=== PATIENT | male | born 1975 | race Caucasian/White ===

== ENCOUNTER 2017-04-19 14:36 | Emergency (ER) | payer OTHER ==
[2017-04-19] MEDS ORDERED: Sodium Chloride 0.9% 10 ML Syringe FLUSH PRN (14:42)
[2017-04-19] MEDS ORDERED: HYDROmorphone 0.5 MG/0.5 ML SYRINGE IVPUSH ONE ×2 (14:45→17:43)
[2017-04-19] MEDS ORDERED: Iopamidol 612 MG/ML 100 ML Bottle IVPUSH ONE (15:33)
[2017-04-19] MEDS ORDERED: Sodium Chloride 0.9% 10 ML Syringe FLUSH ONE (15:33)
--- NOTE | 2017-04-19 16:39 | EDM.PDOC ---
ED HPI GENERAL MEDICAL PROBLEM - General Chief Complaint: Chest Pain Stated Complaint: [facility] Time Seen by Provider: 04/19/17 14:42 Source of Information: Reports: Patient, EMS History Limitations: Reports: No Limitations - History of Present Illness INITIAL COMMENTS - FREE TEXT/NARRATIVE: The patient fell going into his trailer last night and landed on a chair with his right chest. He did not hit his head and he has no neck pain. He had pain through the night but this morning it was much worse. He has pain in the right chest that radiates to the right shoulder. He has no headache, neck pain, abdominal pain, nausea or vomiting. He does smoke. Onset: Sudden Duration: Day(s): (Last night) Location: Reports: Chest Quality: Reports: Sharp Severity: Severe Improves with: Reports: Immobilization Worsens with: Reports: Movement Context: Reports: Trauma (He fell in his trailer last night) Associated Symptoms: Reports: Chest Pain, Shortness of Breath. 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) Right Chest Pain Score (Numeric/FACES): 8 - Related Data Allergies Allergy/AdvReac Type Severity Reaction Status Date / Time No Known Allergies Allergy Verified 04/19/17 14:45 Home Meds: Home Meds oxyCODONE HCl/Acetaminophen [Percocet 5-325 mg Tablet] 1 - 2 each PO Q6HR PRN # 20 tablet 04/19/17 [Rx] Social & Family History - Tobacco Use Smoking Status *Q: Current Every Day Smoker Years of Tobacco use: 25 Packs/Tins Daily: 1 Used Tobacco, but Quit: No - Caffeine Use Caffeine Use: Reports: None - Recreational Drug Use Recreational Drug Use: No ED ROS GENERAL - Review of Systems Review Of Systems: See Below Constitutional: Reports: No Symptoms HEENT: Reports: No Symptoms Respiratory: Reports: Shortness of Breath Cardiovascular: Reports: Chest Pain Endocrine: Reports: No Symptoms GI/Abdominal: Reports: No Symptoms : Reports: No Symptoms Musculoskeletal: Reports: No Symptoms ED EXAM, GENERAL - Physical Exam Exam: See Below Exam Limited By: No Limitations General Appearance: Alert, Mild Distress Ears: Normal External Exam Nose: Normal Inspection Head: Atraumatic, Normocephalic Neck: Normal Inspection, Supple, Non-Tender Respiratory/Chest: No Respiratory Distress, Lungs Clear, Normal Breath Sounds Cardiovascular: Regular Rate, Rhythm, No Edema, No Murmur, Other (Pain upon palpation to the right ribs) GI/Abdominal: Soft, Non-Tender, No Organomegaly, No Mass Back Exam: Normal Inspection Extremities: Normal Inspection EKG INTERPRETATION EKG Date: 04/19/17 Time: 15:05 Rhythm: Other (sinus tachycardia) Rate (Beats/Min): [address] [place]: Normal P-Wave: Present QRS: Normal ST-T: Normal QT: Normal Course - Vital Signs Last Recorded V/S: Last Vital Signs Temp 98.3 F 04/19/17 14:41 Pulse 104 H 04/19/17 14:41 Resp 24 H 04/19/17 14:41 BP 168/101 H 04/19/17 14:41 Pulse Ox 93 L 04/19/17 14:41 - Orders/Labs/Meds Orders: Active Orders 24 hr Category Date Time Status Cardiac Monitoring [RC] . DIRECTED Care 04/19/17 14:43 Active EKG Documentation Completion [RC] STAT Care 04/19/17 14:44 Active Oxygen Therapy [RC] PRN Care 04/19/17 14:43 Active Peripheral IV Care [RC] . DIRECTED Care 04/19/17 14:44 Active Chest w Cont [CT] Stat Exams 04/19/17 14:45 Taken Sodium Chloride 0.9% [Saline Flush] Med 04/19/17 14:42 Active 10 ml FLUSH ASDIRECTED PRN Peripheral IV Insertion Adult [OM.PC] Stat Oth 04/19/17 14:42 Ordered Medication Orders Sodium Chloride (Saline Flush) 10 ml FLUSH ASDIRECTED PRN PRN Reason: Keep Vein Open Last Admin: 04/19/17 14:54 Dose: 10 ml Labs: Laboratory Tests 04/19/17 04/19/17 Range/Units 14:55 14:55 WBC 14.60 H (4.23-9.07) K/mm3 RBC 5.15 (4.63-6.08) M/mm3 Hgb 16.3 (13.7-17.5) gm/L Hct 47.5 (40.1-51.0) % MCV 92.2 (79.0-92.2) fl MCH 31.7 (25.7-32.2) pg MCHC 34.3 (32.2-35.5) g/dl RDW Std Deviation 45.8 H (35.1-43.9) fL Plt Count 261 (163-337) K/mm3 MPV 9.8 (9.4-12.3) fl Neut % (Auto) 73.2 H (34.0-67.9) % Lymph % (Auto) 17.5 L (21.8-53.1) % [place] % (Auto) 7.5 (5.3-12.2) % Eos % (Auto) 1.5 (0.8-7.0) Baso % (Auto) 0.1 (0.1-1.2) % Neut # (Auto) 10.68 H (1.78-5.38) K/mm3 Lymph # (Auto) 2.56 (1.32-3.57) K/mm3 [place] # (Auto) 1.09 H (0.30-0.82) K/mm3 Eos # (Auto) 0.22 (0.04-0.54) K/mm3 Baso # (Auto) 0.02 (0.01-0.08) K/mm3 Sodium 141 (136-145) mEq/L Potassium 3.8 (3.5-5.1) mEq/L Chloride 103 (98-107) mEq/L Carbon Dioxide 24 (21-32) mEq/L Anion Gap 17.8 H (5-15) BUN 8 (7-18) mg/dL Creatinine 0.9 (0.7-1.3) mg/dL Est Cr Clr Drug Dosing 113.88 mL/min Estimated GFR (MDRD) > 60 (>60) mL/min BUN/Creatinine Ratio 8.9 L (14-18) Glucose 99 (74-106) mg/dL Calcium 8.9 (8.5-10.1) mg/dL Total Bilirubin 0.5 (0.2-1.0) mg/dL AST 39 H (15-37) U/L ALT 54 (16-63) U/L Alkaline Phosphatase 69 (46-116) U/L Troponin I < 0.017 (0.00-0.056) ng/mL Total Protein 8.0 (6.4-8.2) g/dl Albumin 4.4 (3.4-5.0) g/dl Globulin 3.6 gm/dL Albumin/Globulin Ratio 1.2 (1-2) Meds: Medications Generic Name Dose Route Start Last Admin Trade Name Freq PRN Reason Stop Dose Admin Sodium Chloride 10 ml 04/19/17 14:42 04/19/17 14:54 Saline Flush FLUSH 10 ml ASDIRECTED PRN Administration Keep Vein Open Discontinued Medications Generic Name Dose Route Start Last Admin Trade Name Freq PRN Reason Stop Dose Admin Hydromorphone HCl 0.5 mg 04/19/17 14:45 04/19/17 14:54 Dilaudid IVPUSH 04/19/17 14:46 0.5 mg ONETIME ONE Administration Iopamidol 100 ml 04/19/17 15:33 04/19/17 15:53 Isovue-300 (61%) IVPUSH 04/19/17 15:34 100 ml ONETIME ONE Administration Sodium Chloride 10 ml 04/19/17 15:33 04/19/17 15:53 Saline Flush FLUSH 04/19/17 15:34 10 ml ONETIME ONE Administration - Re-Assessments/Exams Free Text/Narrative Re-Assessment/Exam: 04/19/17 16:38 I ordered an IV, labs, a CT of his chest and dilaudid 0.5mg IV for pain. 04/19/17 17:43 His WBC was elevated at 14.6. His anion gap is elevated at 17.8. His AST is elevated at 34. His troponin is negative. The CT of his chest shows acute fracture of right 7th rib, small right sided pneumothorax estimated at less than 10% and Ghon complex RLL. Departure - Departure Time of Disposition: 17:45 Disposition: Home, Self-Care 01 Condition: Good Clinical Impression: Pneumothorax on right Fall Qualifiers: Encounter type: initial encounter Qualified Code(s): W19.XXXA - Unspecified fall, initial encounter Rib fracture Qualifiers: Encounter type: initial encounter Rib fracture type: single rib Fracture type: closed Laterality: right Qualified Code(s): S22.31XA - Fracture of one rib, right side, initial encounter for closed fracture Prescriptions: oxyCODONE HCl/Acetaminophen [Percocet 5-325 mg Tablet] 1 - 2 each PO Q6HR PRN # 20 tablet PRN Reason: Pain Referrals: PCP,Not In Area [Primary Care Provider] - Domo Diaz MD [Physician] - 1 Week Forms: ED Department Discharge Additional Instructions: Take percocet as needed for pain. Try to take some deep breaths. Please return if you are more short of breath or have more pain. Try to stop smoking. Follow up with Dr Diaz in 1 week. - My Orders Last 24 Hours: My Active Orders 04/19/17 14:42 Sodium Chloride 0.9% [Saline Flush] 10 ml FLUSH ASDIRECTED PRN Peripheral IV Insertion Adult [OM.PC] Stat 04/19/17 14:43 Cardiac Monitoring [RC] . DIRECTED Oxygen Therapy [RC] PRN 04/19/17 14:44 EKG Documentation Completion [RC] STAT Peripheral IV Care [RC] . DIRECTED 04/19/17 14:45 Chest w Cont [CT] Stat - Assessment/Plan Last 24 Hours: My Active Orders 04/19/17 14:42 Sodium Chloride 0.9% [Saline Flush] 10 ml FLUSH ASDIRECTED PRN Peripheral IV Insertion Adult [OM.PC] Stat 04/19/17 14:43 Cardiac Monitoring [RC] . DIRECTED Oxygen Therapy [RC] PRN 04/19/17 14:44 EKG Documentation Completion [RC] STAT Peripheral IV Care [RC] . DIRECTED 04/19/17 14:45 Chest w Cont [CT] Stat
--- NOTE | 2017-04-21 08:01 | CT ---
CT chest Technique: Multiple axial sections were obtained from above the lung apices inferiorly through the lung bases. Intravenous contrast was utilized. Comparison: No previous chest imaging. Findings: Small portion of the visualized upper abdominal structures are within normal limits with the exception of mild fatty infiltration within the liver. No pericardial thickening is seen. Mediastinum and hilar regions show no adenopathy or mass. No axillary adenopathy is seen. Small pneumothorax is noted on the right side. No left-sided pneumothorax is seen. Mild atelectasis is noted within the right lung base. Several small calcified granulomas or possibly lymph nodes are seen within the right lower mediastinum. Lungs otherwise are clear. Fracture is identified within the seventh lateral right rib which is minimally displaced. Minimal amount of air is seen within the chest wall at this level. No additional rib abnormality is appreciated. Impression: 1. Minimally displaced fracture within the right lateral seventh rib with small right-sided pneumothorax being seen. This measures less than 10%. 2. Other incidental findings as noted above. Diagnostic code #5 I agree with preliminary report from [facility], finalized at 04/19/17, 5:50 PM Central Time
== END 2017-04-19 17:59 | disposition home or self-care (01) ==
LOC: JD.ED 14:36
DX: S27.0XXA Traumatic pneumothorax, initial encounter (principal); S22.31XA Fracture of one rib, right side, initial encounter for closed fracture; F17.210 Nicotine dependence, cigarettes, uncomplicated; W19.XXXA Unspecified fall, initial encounter
CPT/HCPCS: 36415; 71260; 80053; 84484; 85025; 93005; 96374; 96376; 99284; J1170; J7050; Q9967; 93010

== ENCOUNTER 2017-07-16 09:22 | Emergency (ER) | payer OTHER ==
--- NOTE | 2017-07-16 11:26 | EDM.PDOC ---
ED HPI GENERAL MEDICAL PROBLEM - General Chief Complaint: Upper Extremity Injury/Pain Stated Complaint: FELL ON RIGHT SHOULDER Time Seen by Provider: 07/16/17 10:44 Source of Information: Reports: Patient History Limitations: Reports: No Limitations - History of Present Illness INITIAL COMMENTS - FREE TEXT/NARRATIVE: The patient states that he fell off the ladder attached to the back of his camper as he was coming down it, approximately a 6 foot fall, this past 07/13/2017. He states that he landed on his right shoulder on the dirt. He feels that his shoulder is swollen, and that it hurts to move it. No prior right shoulder injury. He states that he is otherwise uninjured. The patient's PCP is Dr. Villanueva at the [place]. Right Shoulder Pain Score (Numeric/FACES): 8 - Related Data Allergies Allergy/AdvReac Type Severity Reaction Status Date / Time Penicillins Allergy Swelling Verified 07/16/17 09:42 Home Meds: Home Meds . [No Known Home Meds] 07/16/17 [History] Past Medical History - Past Health History Medical/Surgical History: Denies Medical/Surgical History - Past Surgical History HEENT Surgical History: Reports: Other (See Below) (Right TM repair x 4) GI Surgical History: Reports: Appendectomy, Hernia, Inguinal (bilateral) Musculoskeletal Surgical History: Reports: ORIF (left ankle) Social & Family History - Tobacco Use Smoking Status *Q: Current Every Day Smoker Years of Tobacco use: 20 Packs/Tins Daily: 1 - Caffeine Use Caffeine Use: Reports: Coffee - Alcohol Use Alcohol Use History: Yes Alcohol Use Frequency: Socially - Recreational Drug Use Recreational Drug Use: No - Living Situation & Occupation Living situation: Reports: , Alone 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 ED EXAM, GENERAL - Physical Exam Exam: See Below Exam Limited By: No Limitations General Appearance: Alert, WD/WN, No Apparent Distress, Other (Strong smell of alcohol) Eye Exam: Bilateral Eye: Normal Inspection Ears: Normal External Exam, Hearing Grossly Normal Nose: Normal Inspection, No Blood Throat/Mouth: Normal Inspection, Normal Lips, Normal Voice, No Airway Compromise Head: Atraumatic, Normocephalic Neck: Normal Inspection, Full Range of Motion Respiratory/Chest: No Respiratory Distress, Lungs Clear, Normal Breath Sounds, No Accessory Muscle Use, Chest Non-Tender Cardiovascular: Normal Peripheral Pulses, Regular Rate, Rhythm, No Gallop, No JVD, No Murmur, No Rub Peripheral Pulses: 4+: Radial (L), Radial (R) GI/Abdominal: Normal Bowel Sounds, Soft, Non-Tender, No Organomegaly, No Distention, No Abnormal Bruit, No Mass (Male) Exam: Deferred Rectal (Males) Exam: Deferred Back Exam: Normal Inspection, Full Range of Motion, NT Extremities: Normal Inspection, Normal Capillary Refill, Other (No visible abnormality to the patient's right shoulder, such as swelling, erythema, ecchymosis, or abrasion. The patient "jumps" with the slightest touch to his right deltoid muscle, then indicated that his tenderness was further down the arm, and not where I had touched him. When I touched him lightly where he indicated he hurt, he again jumped. The patient also jumped when asked to abduct his right arm against resistance, yet he made no effort whatsoever to actually abduct the arm. He also jumped with the requested to externally rotate the arm, again with minimal effort. He had reasonable strength to adduction and internal rotation of the arm, and equivocal strength to both extension and flexion of the shoulder. Attempt at PROM was met with minimal success. I was able to raise the patient's right upper extremity approximately shoulder height , but not beyond, his patient claimed it was too painful. Neurovascular status of the right upper extremity is intact.) Neurological: Alert, Oriented, Normal Cognition, No Motor/Sensory Deficits Psychiatric: Normal Affect Skin Exam: Warm, Dry, Intact, Normal Color, No Rash Course - Vital Signs Last Recorded V/S: Last Vital Signs Temp 37.7 C 07/16/17 09:40 Pulse 80 07/16/17 11:51 Resp 16 07/16/17 11:51 BP 160/84 H 07/16/17 11:51 Pulse Ox 98 07/16/17 11:51 - Re-Assessments/Exams Free Text/Narrative Re-Assessment/Exam: 07/16/17 10:58 2-view radiographs of the right clavicle appear to be normal. No fracture or dislocation identified. Formal read per the Radiologist pending. 3-view radiographs of the right shoulder appear to be unremarkable. No fracture or dislocation identified. Formal read per the Radiologist pending. 07/16/17 11:38 The patient smells of alcohol, and there are numerous problems with his physical examination to suggest that there is at least some component of malingering. For today's purposes, I will have the patient placed into a right shoulder sling, then have him follow-up with Dr. Quintero, for further evaluation. Departure - Departure Time of Disposition: 11:38 Disposition: Home, Self-Care 01 Condition: Good Clinical Impression: Right shoulder pain - Discharge Information Instructions: Shoulder Pain, [id number] Referrals: Lissa Villanueva DO [Primary Care Provider] - Otto Quintero MD [Physician] - Forms: ED Department Discharge Additional Instructions: You were seen in the emergency room for right shoulder pain after falling off your camper ladder. Workup in the ER included x-rays of your right clavicle (collarbone) and right shoulder, all of which were normal. No fractures or dislocations. It is unclear what is the cause of your pain based on your physical examination. You have been placed into a right shoulder sling. We recommend that you follow-up with the Orthopedic Surgeon Dr. Quintero at the next available appointment, for further evaluation. If any other problems, please do not hesitate to return to the ER.
--- NOTE | 2017-07-16 15:59 | CR ---
Right clavicle: Two views of the right clavicle were obtained. Comparison: No prior clavicle exam. Mild joint space narrowing is seen within the acromioclavicular joint with minimal inferior spurring. No fracture or other bony abnormality is seen. Impression: 1. Slight degenerative change within the acromioclavicular joint as noted above. 2. Right clavicle study is otherwise unremarkable. Diagnostic code #2
--- NOTE | 2017-07-16 15:59 | CR ---
Right shoulder: Three views of the right shoulder were obtained. Comparison: No previous study. Joint space narrowing seen within the acromioclavicular joint. Slight inferior spurring is identified within the acromioclavicular joint. Glenohumeral joint is within normal limits. Cystic lesion is seen within the proximal diaphysis of the humerus believed to be benign and incidental. No fracture or other bony abnormality is identified. Impression: 1. Degenerative change within the acromioclavicular joint. Cyst within the proximal humerus. 2. Right shoulder study is otherwise unremarkable. Diagnostic code #2
== END 2017-07-16 11:50 | disposition home or self-care (01) ==
LOC: JD.ED 09:22
DX: M25.511 Pain in right shoulder (principal); F17.210 Nicotine dependence, cigarettes, uncomplicated; Z88.0 Allergy status to penicillin
CPT/HCPCS: 73000-26-RT; 73000-RT; 73030-26-RT; 73030-RT; 99283

== ENCOUNTER 2017-08-21 07:54 | Day surgery (SDC) | payer BC ==
[~2017-08-21 07:54] MED LIST: Lactated Ringers 1,000 ML IV SCH; Lidocaine 1%/Sod Bicarbonate in NS 8.4% 1 ML Syringe IDERM PRN; Sodium Chloride 0.9% 10 ML Syringe FLUSH PRN
[2017-08-21] MEDS ORDERED: Rocuronium 50 MG/5 ML Vial ONE (07:57)
[2017-08-21] MEDS ORDERED: Ondansetron 4 MG/2 ML SDV ONE (07:57)
[2017-08-21] MEDS ORDERED: Propofol 200 MG/20 ML SDV ONE (07:57)
[2017-08-21] MEDS ORDERED: fentaNYL 100 MCG/2 ML SDV ONE ×2 (07:58→10:26)
[2017-08-21] MEDS ORDERED: Midazolam 1 MG/ML 2 ML SDV ONE ×2 (07:58→10:28)
[2017-08-21] MEDS ORDERED: Lidocaine 1% 4 ML ONE (07:58)
[2017-08-21] MEDS ORDERED: EPINEPHrine 1 MG/ML SDV ONE (08:05)
[2017-08-21] MEDS ORDERED: Ropivacaine 0.5% 5 MG/ML 30 ML SDV ONE (08:05)
[2017-08-21] MEDS ORDERED: Lidocaine 1% 2 ML ONE (08:12)
--- NOTE | 2017-08-21 08:27 | PCM.PREANE ---
Preanesthetic Assessment - Anesthesia/Transfusion/Family Hx Anesthesia History: Prior Anesthesia Reaction (combative waking up) Family History of Anesthesia Reaction: No Transfusion History: No Prior Transfusion(s) - Review of Systems General: No Symptoms Pulmonary: Cough (smokers morning) Cardiovascular: No Symptoms Gastrointestinal: No Symptoms Neurological: No Symptoms Other: Reports: None - Physical Assessment NPO Status Date: 08/20/17 NPO Status Time: 23:30 Pulse: 89 O2 Sat by Pulse Oximetry: 98 Respiratory Rate: 16 Blood Pressure: 150/95 Temperature: 37.5 C Vital Signs: Last Vital Signs Temp 37.5 C 08/21/17 07:55 Pulse 89 08/21/17 07:55 Resp 16 08/21/17 07:55 BP 150/95 H 08/21/17 07:55 Pulse Ox 98 08/21/17 07:55 Height: 1.8 m Weight: 80.286 kg ASA Class: 2 Mental Status: Alert & Oriented x3 Airway Class: Mallampati = 1 Dentition: Reports: Normal Dentition, [place](s) Thyro-Mental Finger Breadths: 3 Mouth Opening Finger Breadths: 3 ROM/Head Extension: Full Lungs: Clear to Auscultation, Normal Respiratory Effort Cardiovascular: Regular Rate, Regular Rhythm, No Murmurs - Lab Values: Laboratory Last Values MRSA (PCR) Negative 08/19/17 12:19 - Allergies Allergies/Adverse Reactions: Allergies Allergy/AdvReac Type Severity Reaction Status Date / Time Penicillins Allergy Swelling Verified 08/20/17 13:33 - Blood Blood Available: No Product(s) Available: None - Anesthesia Plan Pre-Op Medication Ordered: None - Acknowledgements Anesthesia Type Planned: General Anesthesia Pt an Appropriate Candidate for the Planned Anesthesia: Yes Alternatives and Risks of Anesthesia Discussed w Pt/Guardian: Yes Pt/Guardian Understands and Agrees with Anesthesia Plan: Yes PreAnesthesia Questionnaire - Past Health History Medical/Surgical History: Denies Medical/Surgical History Cardiovascular History: Reports: Hypertension Respiratory History: Reports: None Genitourinary History: Reports: None 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 Musculoskeletal History: Reports: None Neurological History: Reports: None Psychiatric History: Reports: None Endocrine/Metabolic History: Reports: None Oncologic (Cancer) History: Reports: None Dermatologic History: Reports: None - Past Surgical History Head Surgeries/Procedures: Reports: None HEENT Surgical History: Reports: Other (See Below) Other HEENT Surgeries/Procedures: tymphanoplasty Cardiovascular Surgical History: Reports: None Respiratory Surgical History: Reports: None GI Surgical History: Reports: Appendectomy, Hernia, Inguinal Female Surgical History: Reports: None Male Surgical History: Reports: None Endocrine Surgical History: Reports: None Neurological Surgical History: Reports: None Musculoskeletal Surgical History: Reports: ORIF Other Musculoskeletal Surgeries/Procedures:: left foot surgery x3 Oncologic Surgical History: Reports: None - SUBSTANCE USE Smoking Status *Q: Current Every Day Smoker Tobacco Use Within Last Twelve Months: Cigarettes Second Hand Smoke Exposure: Yes Days Per Week of Alcohol Use: 0 Number of Drinks Per Day: 0 Total Drinks Per Week: 0 Recreational Drug Use History: No - HOME MEDS Home Medications: Home Meds Lisinopril 10 mg PO DAILY 08/20/17 [History] Acetaminophen/HYDROcodone [[place] 325-5 MG] 1 - 2 tab PO Q6H PRN #40 tablet 08/21 [Rx] Cyclobenzaprine [Flexeril] 10 mg PO Q8H PRN #40 tab 08/21/17 [Rx] - CURRENT (IN HOUSE) MEDS Current Meds: Current Medications Lactated Ringer's (Ringers, Lactated) 1,000 mls @ 125 mls/hr IV ASDIRECTED URIEL Stop: 08/21/17 23:00 Last Admin: 08/21/17 08:12 Dose: 125 mls/hr Clindamycin Phosphate 900 mg/ (Dextrose/Water) 106 mls @ 212 mls/hr IV ONETIME ONE Stop: 08/21/17 09:29 Lidocaine/Sodium Bicarbonate (Buffered Lidocaine 1% In Ns 8.4%) 0.25 ml IDERM ONETIME PRN PRN Reason: Prior to IV Start Stop: 08/21/17 18:00 Last Admin: 08/21/17 08:12 Dose: 0.25 ml Sodium Chloride (Saline Flush) 10 ml FLUSH ASDIRECTED PRN PRN Reason: Keep Vein Open Stop: 08/21/17 18:00 Discontinued Medications Epinephrine HCl (Adrenalin) Confirm Administered Dose 1 mg .ROUTE .STK-MED ONE Stop: 08/21/17 08:06 Fentanyl (Sublimaze) Confirm Administered Dose 100 mcg .ROUTE .STK-MED ONE Stop: 08/21/17 07:59 Lidocaine HCl (Xylocaine-Mpf 1%) Confirm Administered Dose 4 mls @ as directed .ROUTE .STK-MED ONE Stop: 08/21/17 07:59 Lidocaine HCl (Xylocaine-Mpf 1%) Confirm Administered Dose 2 mls @ as directed .ROUTE .STK-MED ONE Stop: 08/21/17 08:13 Midazolam HCl (Versed 1 Mg/Ml) Confirm Administered Dose 2 mg .ROUTE .STK-MED ONE Stop: 08/21/17 07:59 Ondansetron HCl (Zofran) Confirm Administered Dose 4 mg .ROUTE .STK-MED ONE Stop: 08/21/17 07:58 Propofol (Diprivan 20 Ml) Confirm Administered Dose 200 mg .ROUTE .STK-MED ONE Stop: 08/21/17 07:58 Rocuronium [place] (Zemuron) Confirm Administered Dose 50 mg .ROUTE .STK-MED ONE Stop: 08/21/17 07:58 Ropivacaine (Naropin 0.5%) Confirm Administered Dose 30 ml .ROUTE .STK-MED ONE Stop: 08/21/17 08:06
[2017-08-21] MEDS ORDERED: Clindamycin Phosphate 900 MG in Dextrose 5% in Water 100 ML IV ONE ×2 (09:00)
[2017-08-21] MEDS ORDERED: Bupivacaine 0.25% 30 ML SDV ONE (09:03)
--- NOTE | 2017-08-21 09:10 | PCM.SN ---
- Free Text/Narrative Note: Note: 08/21/2017 0837 155/99 83 98% 10 Surgeon and pt request post-op pain control for right shoulder surgery risk of block failure, facial numbness, site infection, and chronic pain discussed with pt and agreed to proceed. All standard monitors est. EKG, BP, Pulse Ox, 2ml O2 and 2ml versed, 2ml fentanyl pre-op dx. right shoulder pain post-op dx right shoulder video arthroscopy pt for interscalene block placement all standard monitors est. pt ID time out performed IV sedation 2ml versed, 2ml fentanyl, 2L NC O2, sterile prep and drape of right neck and shoulder U/S placed with visualization of brachial plexus from clavicle to cricoid local skin infiltration 22ga. Stimplex A insulated needle visualized at brachial plexus nerve stimulator at .9 [place] Amps stop at .4 [place] Amps with good bicep twitch with 1ml NaCl and lose of twitch neg aspirations every 5ml of 0.5% ropivacaine and 1:200,000 epi total of 30ml injected all done with U/S guidance needle withdrawn no complications noted pt tolerated procedure well block settling in start procedure at 0837 end procedure at 0583 137/87 81 98% 18
[2017-08-21] MEDS ORDERED: EPINEPHrine 1 MG/ML 30 ML MDV ONE (09:15)
[2017-08-21] MEDS ORDERED: fentaNYL 100 MCG/2 ML SDV IVPUSH PRN (11:56)
[2017-08-21] MEDS ORDERED: HYDROmorphone 0.5 MG/0.5 ML Syringe IVPUSH PRN (11:56)
--- NOTE | 2017-08-21 11:58 | PCM.POSTAN ---
POST ANESTHESIA ASSESSMENT - MENTAL STATUS Mental Status: Somnolent - VITAL SIGNS Pulse Rate: 91 SaO2: 90 Resp Rate: 18 Blood Pressure: 142/81 Temperature: 36.6 C - RESPIRATORY Respiratory Status: Respiratory Rate WNL, Airway Patent, O2 Saturation Stable, Supplemental Oxygen - CARDIOVASCULAR CV Status: Pulse Rate WNL - GASTROINTESTINAL GI Status: No Symptoms - PAIN Pain Score: 0 - POST OP HYDRATION Hydration Status: Adequate & Stable - OBSERVATIONS Free Text/Narrative:: no anesthesia complications noted
--- NOTE | 2017-08-25 07:23 | PCM.OPNOTE ---
- General Post-Op/Procedure Note Date of Surgery/Procedure: 08/21/17 Operative Procedure(s): right shoulder video arthroscopy with rotator cuff repair and limited debridement Pre Op Diagnosis: right shoulder rotator cuff tear Post-Op Diagnosis: same with osteoporotic bone Anesthesia Technique: General ET Tube, Regional Block Primary Surgeon: Otto Quintero Anesthesia Provider: Nabor Andersen Burn Crew Member: Claudia Cameron EBL in mLs: 5 Complications: None Condition: Good
--- NOTE | 2017-08-26 14:43 | OR ---
DATE OF OPERATION: 08/21/2017 SURGEON: Otto Quintero MD OPERATION PERFORMED: Right shoulder video arthroscopy with rotator cuff repair and limited debridement. PREOPERATIVE DIAGNOSIS: Right shoulder rotator cuff tear. POSTOPERATIVE DIAGNOSIS: Right shoulder rotator cuff tear with osteoporotic bone. ANESTHESIA: General endotracheal intubation with regional interscalene block. ANESTHESIA PROVIDER: Nabor Andersen CRNA. TEMPORARY ADMINISTRATIVE ASSISTANT: Claudia Cameron PA-C. ESTIMATED BLOOD LOSS: Less than 5 mL. COMPLICATIONS: None. CONDITION: Stable. DESCRIPTION OF PROCEDURE: The patient was identified in the preoperative holding area. Proper site was marked and identified by the surgeon. The patient was taken back to the operative theater, where after adequate anesthesia, the patient was placed in the left lateral lazy decubitus position. A wedge was placed posteriorly. Bony prominences were well padded. The patient was secured to the table, at this time, the right upper extremity was sterilely prepped and draped in the usual sterile fashion. OR-wide time-out was performed. The patient received 2 grams of IV Ancef. At this time, 12 pounds of traction was applied to the right upper extremity. Standard posterior incision was made. Scope trocar was introduced into the glenohumeral joint. At this time, the patient was noted to have full- thickness tear to the supraspinatus tendon, going back to the margin of the infraspinatus. Biceps tendon showed no significant fraying. There was no significant chondromalacia noted. No loose or foreign bodies. At this time, anterior portal was created with the use of a spinal needle from an outside-in- technique. At this time, the scope was placed in the subacromial space. At this time, the patient was noted to have significant synovitis, but there was no fraying of the CA ligament. A lateral portal was then created with the use of spinal needle and a limited debridement was done of the subacromial space as well as debriding the attachment for the footprint of the rotator cuff. At this time, once this had happened, a punch was used for a 4.75 mm Arthrex SwiveLock anchor medially. When I did this, the patient did have a nondisplaced fracture of the greater tuberosity secondary to severe osteoporotic bone. Even the shaver would take bone away as it was so soft. At this time, it was decided that we would not place it medially, but would just bring in 2 lateral row anchors, where there was better cortical bone. Two FiberTapes were then passed, 2 limbs each, starting from anterior to posterior to the limbs, one from each. The FiberTapes were then brought out laterally and anteriorly, and tension was applied. The patient, even on the cortical bone, was noted to have significant softness of the bone. The first 4.75 mm Arthrex SwiveLock anchor was brought out laterally and anteriorly. The second one was brought out laterally and posteriorly. There was good cross-pattern reduction of the rotator cuff tear at this time, and the previous little small nondisplaced fracture of the greater tuberosity was covered and compressed with the repair of the rotator cuff. At this time, it was decided that we would not do a subacromial decompression secondary to the patient's severe osteoporosis. At this time, excess saline was drained from the shoulder. A 3-0 nylon simple suture was used for closure of the skin. The patient had a sterile soft dressing and a pillow sling applied. MARGIE /[id number]
== END 2017-08-21 13:35 | disposition home or self-care (01) ==
LOC: JD.SDS 07:54
PROVIDERS: ATTEND Orthopaedic Surgery
DX: M75.121 Complete rotator cuff tear or rupture of right shoulder, not specified as traumatic (principal); M65.811 Other synovitis and tenosynovitis, right shoulder; M80.011A Age-related osteoporosis with current pathological fracture, right shoulder, initial encounter for fracture; I10 Essential (primary) hypertension; F17.210 Nicotine dependence, cigarettes, uncomplicated; Z79.899 Other long term (current) drug therapy; Z88.0 Allergy status to penicillin
CPT/HCPCS: 29827; 64415; 87641; J0171; J2250; J2405; J2704; J2795; J3010; J3490; J7060; J7120; 01630; J2001